=== PATIENT | male | born 1970 | race African-American/Black ===

== ENCOUNTER 2016-05-07 21:12 | Emergency (ER) | payer OTHER ==
[~2016-05-07 21:12] MED LIST: HYDREA500 MG PO; LORTAB 7.5-5001 TAB PO; MAXIMUM DAILY1 EACH PO; NICOTINE TRANSD14 MG EXT; VANCOMYCIN1.25 GM/25 IV; VICODIN ES 7.51 EACH PO; ZOFRAN2 MG/ML; ZOSYN 3.373.375 G/VI IV; [UNRECOGNIZED DRUG - REMARK]
== END 2016-05-07 21:20 | disposition home or self-care (01) ==
LOC: CFTX 21:12
DX: S61.214D Laceration without foreign body of right ring finger without damage to nail, subsequent encounter (principal); F17.210 Nicotine dependence, cigarettes, uncomplicated; W45.8XXD Other foreign body or object entering through skin, subsequent encounter; Y92.9 Unspecified place or not applicable
CPT/HCPCS: 99281